=== PATIENT | male | born 1945 | race Caucasian/White ===

== ENCOUNTER → 2018-10-26 | Outpatient (CLI) | payer MEDICARE, BC ==
[~2018-10-26] MED LIST: IOPAMIDOL 370 MG/ML 200 ML INFUS..BTL INJ ONE; SODIUM CHLORIDE 0.9% 50ML 50 ML ONE
[2018-10-26 10:31] LABS: BLOOD UREA NITROGEN 13 mg/dL (7-26); BUN/CREATININE RATIO 15 (6-25); CREATININE, SERUM 0.86 mg/dL (0.72-1.25); EST GLOMERULAR FILTRATION RATE > 60 ML/MIN (60-)
--- NOTE | 2018-10-26 13:28 | Diagnostic Imaging Report ---
EXAMINATION: CT of the chest with contrast. TECHNIQUE: Spiral CT images of the chest were performed from the lung apices through the level of the adrenal glands after the IV administration of 100 cc of Isovue-370. Thin coronal and sagittal reformations were accomplished. Low-dose technique was utilized to maintain the lowest dose possible to the patient. DLP: 527.85 mGy-cm COMPARISON: <none> CLINICAL HISTORY: Chest pain DISCUSSION: Lungs: No nodules, masses, edema or consolidation. Airways: <The major airways are clear.> Pleura: <There is no evidence of pleural effusion or pneumothorax. Heart and mediastinum: <The heart and the mediastinum are normal.> There is coronary calcification. Aortic calcification also noted. Prominent right paratracheal lymph node has a maximal short axis dimension of 9.2 mm. Common origin of the right innominate artery and the left common carotid artery. Abdomen: Clips in the gallbladder fossa. The superiormost image of the right kidney shows stranding (Intake history relates that the patient is on antibiotics for urinary tract infection). Bones and soft tissues: Mild degenerative changes of the spine. Soft tissues appear intact. IMPRESSION: No acute abnormality within the chest. Signed by: Dr. Jewel Jacques DO on 10/26/2018 1:25 PM
== END ==
LOC: CT 09:27
DX: R07.9 Chest pain, unspecified (principal)
CPT/HCPCS: 36415; 71260; 82565; 84520; Q9967